=== PATIENT | female | born 1985 | race African-American/Black ===

== ENCOUNTER 2019-04-25 22:58 | Emergency (ER) | payer OTHER ==
[2019-04-25] MEDS ORDERED: Sodium Chloride 0.9% 10 ML Syringe FLUSH PRN (23:19)
[2019-04-25] MEDS ORDERED: Sodium Chloride 0.9% 2.5 ML Syringe FLUSH PRN (23:19)
[2019-04-25] MEDS ORDERED: Sodium Chloride 0.9% 1,000 ML IV ONE (23:19)
[2019-04-25] MEDS ORDERED: Ibuprofen 600 MG Tab PO ONE (23:25)
--- NOTE | 2019-04-25 23:28 | EDM.PDOC ---
ED HPI GENERAL MEDICAL PROBLEM - General Chief Complaint: General Stated Complaint: CHILLS,FLU SYMPTOMS Time Seen by Provider: 04/25/19 23:15 - History of Present Illness INITIAL COMMENTS - FREE TEXT/NARRATIVE: HISTORY AND PHYSICAL: History of present illness: The patient is a healthy 33-year-old female with a history of a hysterectomy and presents tonight with suprapubic pain that started on Tuesday associated with dysuria or urgency and pressure at the end of urination and fevers and chills that started this evening. She's had no cough or upper respiratory symptoms shortness of breath or upper abdominal pain and no vomiting or diarrhea. She has diffuse body aches and lower back pain but no discrete flank pain. She says that she started having fevers and chills this evening and took a dose of Tylenol which she believes were 2 extra strength tablets at 7 PM. She currently still feels chilly and is febrile here. She says she has been pushing hydration and as has generalized aches and pains. She has no sore throat earache sinus pain or congestion headache or shortness of breath. The patient says she has lower back pain which is bilateral and no midline back pain. Review of systems: As per history of present illness and below otherwise all systems reviewed and negative. Past medical history: As per history of present illness and as reviewed below otherwise noncontributory. Surgical history: As per history of present illness and as reviewed below otherwise noncontributory. Social history: No reported history of drug or alcohol abuse. Family history: As per history of present illness and as reviewed below otherwise noncontributory. Physical exam: General: Well-developed well-nourished female who is nontoxic and vital signs are noted by me. She moves easily in the ED without distress HEENT: Atraumatic, normocephalic, pupils reactive, negative for conjunctival pallor or scleral icterus, mucous membranes moist, throat clear, neck supple, nontender, trachea midline. Lungs: Clear to auscultation, breath sounds equal bilaterally, chest nontender. Heart: S1S2, regular rhythm and tachycardic rate of my evaluation but no overt murmurs Abdomen: Soft, nondistended, mild suprapubic tenderness without rebound or guarding and bowel sounds are slightly hypoactive Negative for masses or hepatosplenomegaly. Negative for costovertebral tenderness. Pelvis: Stable nontender. Genitourinary: Deferred. Rectal: Deferred. Extremities: Atraumatic, negative for cords or calf pain. Neurovascular unremarkable. Neuro: Awake, alert, oriented. Cranial nerves II through XII unremarkable. Cerebellum unremarkable. Motor and sensory unremarkable throughout. Exam nonfocal. Diagnostics: CBC CMP lactate UA urine culture blood cultures Therapeutics: IV fluids Motrin Rocephin, Tylenol She is aware of testing results and will go home with Levaquin to start in the morning. Advised her on reasons to return, need to push hydration and to take Tylenol and ibuprofen [id number]. In the clinic but cannot recall who it is. Impression: UTI with fever Definitive disposition and diagnosis as appropriate pending reevaluation and review of above. Treatments PATENT AGENT: Reports: Acetaminophen left slower side abdomen Pain Score (Numeric/FACES): 10 - Related Data Allergies Allergy/AdvReac Type Severity Reaction Status Date / Time No Known Allergies Allergy Verified 04/25/19 23:18 Home Meds: Home Meds . 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 ED EXAM, GENERAL - Physical Exam Exam: See Below (See dictation) Course - Vital Signs Last Recorded V/S: Last Vital Signs Temp 39.1 C H 04/26/19 00:35 Pulse 114 H 04/26/19 00:35 Resp 20 04/26/19 00:35 BP 114/68 04/26/19 00:35 Pulse Ox 95 04/26/19 00:35 - Orders/Labs/Meds Orders: Active Orders 24 hr Category Date Time Status CULTURE BLOOD [BC] Stat Lab 04/25/19 23:25 Received CULTURE BLOOD [BC] Stat Lab 04/25/19 23:53 Received CULTURE URINE [RM] Stat Lab 04/25/19 23:15 Received Sodium Chloride 0.9% [Saline Flush] Med 04/25/19 23:19 Active 10 ml FLUSH ASDIRECTED PRN Sodium Chloride 0.9% [Saline Flush] Med 04/25/19 23:19 Active 2.5 ml FLUSH ASDIRECTED PRN Blood Culture x2 Reflex Set [OM.PC] Stat Ot 04/25/19 23:25 Ordered Saline Lock Insert [OM.PC] Stat Ot 04/25/19 23:19 Ordered Medication Orders Sodium Chloride (Saline Flush) 10 ml FLUSH ASDIRECTED PRN PRN Reason: Keep Vein Open Sodium Chloride (Saline Flush) 2.5 ml FLUSH ASDIRECTED PRN PRN Reason: Keep Vein Open Labs: Laboratory Tests 04/25/19 04/25/19 04/25/19 Range/Units 23:15 23:30 23:30 WBC 5.81 (4.0-11.0) K/uL RBC 4.91 (4.30-5.90) M/uL Hgb 11.3 L (12.0-16.0) g/dL Hct 35.8 L (36.0-46.0) % MCV 72.9 L (80.0-98.0) fL MCH 23.0 L (27.0-32.0) pg MCHC 31.6 (31.0-37.0) g/dL RDW Std Deviation 37.7 (28.0-62.0) fl RDW Coeff of [place] 14 (11.0-15.0) % Plt Count 198 (150-400) K/uL MPV 11.40 (7.40-12.00) fL Neut % (Auto) 74.8 (48.0-80.0) % Lymph % (Auto) 21.2 (16.0-40.0) % [place] % (Auto) 1.7 (0.0-15.0) % Eos % (Auto) 2.1 (0.0-7.0) % Baso % (Auto) 0.2 (0.0-1.5) % Neut # (Auto) 4.4 (1.4-5.7) K/uL Lymph # (Auto) 1.2 (0.6-2.4) K/uL [place] # (Auto) 0.1 (0.0-0.8) K/uL Eos # (Auto) 0.1 (0.0-0.7) K/uL Baso # (Auto) 0.0 (0.0-0.1) K/uL Nucleated RBC % 0.0 /100WBC Nucleated RBCs # 0 K/uL Lactate (0.20-2.00) mmol/L Sodium 140 (136-145) mmol/L Potassium 4.3 (3.5-5.1) mmol/L Chloride 105 (98-107) mmol/L Carbon Dioxide 25.0 (21.0-32.0) mmol/L BUN 14 (7.0-18.0) mg/dL Creatinine 0.8 (0.6-1.0) mg/dL Est Cr Clr Drug Dosing 85.56 mL/min Estimated GFR (MDRD) > 60.0 ml/min Glucose 98 (74-106) mg/dL Calcium 8.9 (8.5-10.1) mg/dL Total Bilirubin 0.3 (0.2-1.0) mg/dL AST 27 (15-37) IU/L ALT 40 (14-63) IU/L Alkaline Phosphatase 73 (46-116) U/L Total Protein 7.8 (6.4-8.2) g/dL Albumin 3.8 (3.4-5.0) g/dL Globulin 4.0 (2.6-4.0) g/dL Albumin/Globulin Ratio 0.9 (0.9-1.6) Urine Color YELLOW Urine Appearance CLOUDY Urine pH 6.5 (5.0-8.0) Ur Specific [place] 1.010 (1.001-1.035) Urine Protein TRACE H (NEGATIVE) mg/dL Urine Glucose (UA) NEGATIVE (NEGATIVE) mg/dL Urine Ketones NEGATIVE (NEGATIVE) mg/dL Urine Occult Blood LARGE H (NEGATIVE) Urine Nitrite NEGATIVE (NEGATIVE) Urine Bilirubin NEGATIVE (NEGATIVE) Urine Urobilinogen 0.2 (<2.0) EU/dL Ur Leukocyte Esterase LARGE H (NEGATIVE) Urine RBC 9-12 (0-2/HPF) Urine WBC 50-75 (0-5/HPF) Ur Epithelial Cells FEW (NONE-FEW) Urine Bacteria 1+ H (NEGATIVE) Urine Mucus LIGHT (NONE-MOD) 04/25/19 Range/Units 23:30 WBC (4.0-11.0) K/uL RBC (4.30-5.90) M/uL Hgb (12.0-16.0) g/dL Hct (36.0-46.0) % MCV (80.0-98.0) fL MCH (27.0-32.0) pg MCHC (31.0-37.0) g/dL RDW Std Deviation (28.0-62.0) fl RDW Coeff of [place] (11.0-15.0) % Plt Count (150-400) K/uL MPV (7.40-12.00) fL Neut % (Auto) (48.0-80.0) % Lymph % (Auto) (16.0-40.0) % [place] % (Auto) (0.0-15.0) % Eos % (Auto) (0.0-7.0) % Baso % (Auto) (0.0-1.5) % Neut # (Auto) (1.4-5.7) K/uL Lymph # (Auto) (0.6-2.4) K/uL [place] # (Auto) (0.0-0.8) K/uL Eos # (Auto) (0.0-0.7) K/uL Baso # (Auto) (0.0-0.1) K/uL Nucleated RBC % /100WBC Nucleated RBCs # K/uL Lactate 1.8 (0.20-2.00) mmol/L Sodium (136-145) mmol/L Potassium (3.5-5.1) mmol/L Chloride (98-107) mmol/L Carbon Dioxide (21.0-32.0) mmol/L BUN (7.0-18.0) mg/dL Creatinine (0.6-1.0) mg/dL Est Cr Clr Drug Dosing mL/min Estimated GFR (MDRD) ml/min Glucose (74-106) mg/dL Calcium (8.5-10.1) mg/dL Total Bilirubin (0.2-1.0) mg/dL AST (15-37) IU/L ALT (14-63) IU/L Alkaline Phosphatase (46-116) U/L Total Protein (6.4-8.2) g/dL Albumin (3.4-5.0) g/dL Globulin (2.6-4.0) g/dL Albumin/Globulin Ratio (0.9-1.6) Urine Color Urine Appearance Urine pH (5.0-8.0) Ur Specific [place] (1.001-1.035) Urine Protein (NEGATIVE) mg/dL Urine Glucose (UA) (NEGATIVE) mg/dL Urine Ketones (NEGATIVE) mg/dL Urine Occult Blood (NEGATIVE) Urine Nitrite (NEGATIVE) Urine Bilirubin (NEGATIVE) Urine Urobilinogen (<2.0) EU/dL Ur Leukocyte Esterase (NEGATIVE) Urine RBC (0-2/HPF) Urine WBC (0-5/HPF) Ur Epithelial Cells (NONE-FEW) Urine Bacteria (NEGATIVE) Urine Mucus (NONE-MOD) Meds: Medications Generic Name Dose Route Start Last Admin Trade Name Freq PRN Reason Stop Dose Admin Sodium Chloride 10 ml 04/25/19 23:19 Saline Flush FLUSH ASDIRECTED PRN Keep Vein Open Sodium Chloride 2.5 ml 04/25/19 23:19 Saline Flush FLUSH ASDIRECTED PRN Keep Vein Open Discontinued Medications Generic Name Dose Route Start Last Admin Trade Name Freq PRN Reason Stop Dose Admin Acetaminophen 1,000 mg 04/26/19 00:36 Tylenol Extra Strength PO 04/26/19 00:37 ONETIME ONE Sodium Chloride 1,000 mls @ 999 mls/hr 04/25/19 23:19 04/25/19 23:34 Normal Saline IV 04/26/19 00:19 999 mls/hr STAT ONE Administration Ceftriaxone Sodium/Dextrose 1 50 mls @ 100 mls/hr 04/25/19 23:56 04/26/19 00: 20 gm/ Premix IV 04/26/19 00:25 100 mls/hr ONETIME ONE Administration Ibuprofen 600 mg 04/25/19 23:25 04/25/19 23:36 Motrin PO 04/25/19 23:26 600 mg ONETIME ONE Administration Departure - Departure Time of Disposition: 00:39 Disposition: Home, Self-Care 01 Condition: Good Clinical Impression: UTI, Urinary tract infectious disease Fever Qualifiers: Fever type: unspecified Qualified Code(s): R50.9 - Fever, unspecified - Discharge Information Referrals: Sarah Mcdowell PA [Primary Care Provider] - Forms: ED Department Discharge Additional Instructions: The following information is given to patients seen in the emergency department who are being discharged to home. This information is to outline your options for follow-up care. We provide all patients seen in our emergency department with a follow-up referral. The need for follow-up, as well as the timing and circumstances, are variable depending upon the specifics of your emergency department visit. If you don't have a primary care physician on staff, we will provide you with a referral. We always advise you to contact your personal physician following an emergency department visit to inform them of the circumstance of the visit and for follow-up with them and/or the need for any referrals to a consulting specialist. The emergency department will also refer you to a specialist when appropriate. This referral assures that you have the opportunity for followup care with a specialist. All of these measure are taken in an effort to provide you with optimal care, which includes your followup. Under all circumstances we always encourage you to contact your private physician who remains a resource for coordinating your care. When calling for followup care, please make the office aware that this follow-up is from your recent emergency room visit. If for any reason you are refused follow-up, please contact the [facility] emergency department at and ask to speak to the emergency department charge nurse. [facility] Primary care- Internal Medicine and Family [address] [address] Push fluids such as water Gatorade and juices and avoid caffeinated products. Please fill the prescription yet been given for antibiotics and take as directed starting later this morning. I'll schedule a follow-up appointment in our clinic for further care and evaluation and return to ER as needed and as discussed. Please take Tylenol 2 extra strength, 1000 mg, every 6 hours and Motrin/ibuprofen, 600 mg every 6 hours for fever management. - My Orders Last 24 Hours: My Active Orders 04/25/19 23:15 CULTURE URINE [RM] Stat 04/25/19 23:19 Sodium Chloride 0.9% [Saline Flush] 10 ml FLUSH ASDIRECTED PRN Sodium Chloride 0.9% [Saline Flush] 2.5 ml FLUSH ASDIRECTED PRN Saline Lock Insert [OM.PC] Stat 04/25/19 23:25 CULTURE BLOOD [BC] Stat Blood Culture x2 Reflex Set [OM.PC] Stat 04/25/19 23:53 CULTURE BLOOD [BC] Stat - Assessment/Plan Last 24 Hours: My Active Orders 04/25/19 23:15 CULTURE URINE [RM] Stat 04/25/19 23:19 Sodium Chloride 0.9% [Saline Flush] 10 ml FLUSH ASDIRECTED PRN Sodium Chloride 0.9% [Saline Flush] 2.5 ml FLUSH ASDIRECTED PRN Saline Lock Insert [OM.PC] Stat 04/25/19 23:25 CULTURE BLOOD [BC] Stat Blood Culture x2 Reflex Set [OM.PC] Stat 04/25/19 23:53 CULTURE BLOOD [BC] Stat
[2019-04-25] MEDS ORDERED: cefTRIAXone 1 GM in Premix Bag 1 BAG IV ONE (23:56)
[2019-04-26 00:02] LABS: BLOOD UREA NITROGEN,BUN 14 mg/dL (7.0-18.0); CHLORIDE,CL 105 mmol/L (98-107); GLUCOSE RANDOM 98 mg/dL (74-106); POTASSIUM,K 4.3 mmol/L (3.5-5.1); SODIUM,NA 140 mmol/L (136-145)
[2019-04-26 00:36] VITALS: BP 114/68; PULSE 114
[2019-04-26] MEDS ORDERED: Acetaminophen 500 MG Tab PO ONE (00:36)
== END 2019-04-26 00:55 | disposition home or self-care (01) ==
LOC: MW.ED 22:58
DX: N39.0 Urinary tract infection, site not specified (principal); Z90.710 Acquired absence of both cervix and uterus
CPT/HCPCS: 36415; 80053; 81001; 83605; 85025; 87040; 87086; 87088; 87186; 96361; 96365; 99283; A9270; J0696; J7040; 87077

== ENCOUNTER 2019-04-26 12:39 | Inpatient (IN) | payer OTHER ==
[2019-04-26] MEDS ORDERED: Ondansetron 4 MG/2 ML SDV IVPUSH PRN (12:45)
[2019-04-26] MEDS ORDERED: oxyCODONE 5 MG Tab PO PRN (12:45)
[2019-04-26] MEDS ORDERED: Ibuprofen 400 MG Tab PO PRN (12:45)
[2019-04-26] MEDS ORDERED: Sodium Chloride 0.9% 2.5 ML Syringe FLUSH PRN (12:45)
[2019-04-26] MEDS ORDERED: Acetaminophen 325 MG Tab PO PRN (12:45)
[2019-04-26] MEDS: Sodium Chloride 0.9% 1,000 ML IV SCH ×2 (13:54→22:15)
--- NOTE | 2019-04-26 14:14 | PCM.HP ---
H&P History of Present Illness - General Date of Service: 04/26/19 Admit Problem/Dx: Admission Diagnosis/Problem Admission Diagnosis/Problem Bacteremia Source of Information: Patient History Limitations: Reports: No Limitations - History of Present Illness Initial Comments - Free Text/Narative: This 33 year old female with pmh of hysterectomy presented to the hospital today for direct admission. Last evening she got off work and felt very ill. She was having chills and fevers at home with lower abdominal pain along with dysuria. She reports she had some urgency and frequency in urination. Symptoms initially started on Tuesday and Tuesday but then became more severe last night prompting evaluation in the ED. In the ED she was noted to have UTI and to be febrile. She was treated with IVFs and Rocephin. UC and BC were obtained. 2/4 blood cultures returned this morning positive for gram negative rods. She was called back for admission. She reports today she is feeling much improved from last night. No further fever at home. She is eating and drinking well, with no nausea or vomiting. She reports mild L flank tenderness, last night it was bilateral. She denies diarrhea. No chest pain or SOB. No sinus congestion or sore throat. She denies any neck pain or headache. She has not traveled recently and has not been on antibiotics recently. In the ED, no leukocytosis noted, Lactate 1.8. BUN 14, and Cr 0.8 UA revealed + 1 bacteria, large amount of blood, large leukocyte esterase and WBC 50-75. She will be directly admitted for gram negative bacteremia and UTI. - Related Data Allergies/Adverse Reactions: Allergies Allergy/AdvReac Type Severity Reaction Status Date / Time No Known Allergies Allergy Verified 04/25/19 23:18 Home Medications: Home Meds . [No Known Home Meds] 04/25/19 [History] Past Medical History - Past Health History Medical/Surgical History: Denies Medical/Surgical History Cardiovascular History: Reports: None. Denies: Afib, High Cholesterol, Hypertension Respiratory History: Reports: None. Denies: Asthma, COPD Gastrointestinal History: Reports: None. 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 Denies: Headaches, Sinus Congestion, Sore Throat, Vertigo Pulmonary: Reports: No Symptoms. Denies: Shortness of Breath Cardiovascular: Reports: No Symptoms. Denies: Chest Pain Gastrointestinal: Reports: No Symptoms. Denies: Abdominal Pain, Black Stool, Bloody Stool, Nausea, Vomiting Genitourinary: Reports: Dysuria, Frequency, Burning, Pain (lower abdominal pain) , Hematuria, Flank Pain Musculoskeletal: Reports: No Symptoms. Denies: Neck Pain Skin: Reports: No Symptoms Psychiatric: Reports: No Symptoms Neurological: Reports: No Symptoms Hematologic/Lymphatic: Reports: No Symptoms Immunologic: Reports: No Symptoms Exam - Exam Exam: See Below - Vital Signs Vital Signs: Last Vital Signs Temp 96.9 F 04/26/19 13:58 Pulse 105 H 04/26/19 13:58 Resp 17 04/26/19 13:58 BP 115/79 04/26/19 13:58 Pulse Ox 98 04/26/19 13:58 - Exam General: Alert, Oriented, Cooperative HEENT: Conjunctiva Clear, Mucosa Moist & [place], Pupils Equal Neck: Supple Lungs: Clear to Auscultation, Normal Respiratory Effort Cardiovascular: Regular Rate, Regular Rhythm GI/Abdominal Exam: Normal Bowel Sounds, Soft, Non-Tender Back Exam: Normal Inspection, Full Range of Motion, CVA Tenderness (L) Extremities: Normal Inspection, Normal Range of Motion, Non-Tender, No Pedal Edema Neuro Extensive - Mental Status: Alert, Oriented x3 Neuro Extensive - Motor, Sensory, Reflexes: CN II-XII Intact, Normal Gait Psychiatric: Alert, Normal Affect, Normal Mood - Patient Data Lab Results Last 24 hrs: Laboratory Results - last 24 hr 04/26/19 Range/Units 13:45 Lactate 1.3 (0.20-2.00) mmol/L Result Diagrams: 04/26/19 13:45 04/26/19 13:45 *Q Meaningful Use (ADM) - VTE Risk Assess *Q Each Risk Factor Represents 1 Point: None Total Score 1 Point Risk Factors: 0 Each Risk Factor Represents 2 Points: None Total Score 2 Point Risk Factors: 0 Each Risk Factor Represents 3 Points: None Total Score 3 Point Risk Factors: 0 Each Risk Factor Represents 5 Points: None Total Score 5 Point Risk Factors: 0 Venous Thromboembolism Risk Factor Score *Q: 0 - Problem List (1) Gram-negative bacteremia SNOMED Code(s): 362747762594 ICD Code: R78.81 - BACTEREMIA Status: Acute Current Visit: Yes (2) UTI, Urinary tract infectious disease SNOMED Code(s): 43747774 ICD Code: N39.0 - URINARY TRACT INFECTION, SITE NOT SPECIFIED Status: Acute Current Visit: No Problem List Initiated/Reviewed/Updated: Yes Orders Last 24hrs: Active Orders 24 hr Category Date Time Status Patient Status [ADT] Routine ADT 04/26/19 12:45 Active Antiembolic Devices [RC] PER UNIT ROUTINE Care 04/26/19 12:47 Active Intake and Output [RC] QSHIFT Care 04/26/19 12:46 Active May Shower [RC] ASDIRECTED Care 04/26/19 12:45 Active Oxygen Therapy [RC] PRN Care 04/26/19 12:45 Active Up ad Hanh [RC] ASDIRECTED Care 04/26/19 12:45 Active VTE/DVT Education [RC] PER UNIT ROUTINE Care 04/26/19 12:45 Active Vital Signs [RC] Q4H Care 04/26/19 12:45 Active Regular Diet [DIET] Diet 04/26/19 Lunch Active Abdomen Pelvis wo Cont [CT] Urgent Exams 04/26/19 14:08 Ordered CBC WITH AUTO DIFF [HEME] Urgent Lab 04/26/19 12:45 Ordered COMPREHENSIVE METABOLIC PN,CMP [CHEM] Urgent Lab 04/26/19 12:45 Ordered CULTURE BLOOD [BC] Stat Lab 04/26/19 12:48 Ordered CULTURE BLOOD [BC] Stat Lab 04/26/19 12:48 Ordered Acetaminophen [Tylenol] Med 04/26/19 12:45 Active 650 mg PO Q4H PRN Ibuprofen [Motrin] Med 04/26/19 12:45 Active 400 mg PO Q6H PRN Ondansetron [Zofran] Med 04/26/19 12:45 Active 4 mg IVPUSH Q4H PRN Sodium Chloride 0.9% [Normal Saline] 1,000 ml Med 04/26/19 12:45 Active IV ASDIRECTED Sodium Chloride 0.9% [Saline Flush] Med 04/26/19 12:45 Active 2.5 ml FLUSH ASDIRECTED PRN cefTRIAXone [Rocephin in Dextrose,Iso-Osm 2 GM/50 ML] 2 Med 04/26/19 14:15 Ordered gm Premix Bag 1 bag IV Q24H oxyCODONE Med 04/26/19 12:45 Active 5 mg PO Q4H PRN Blood Culture x2 Reflex Set [OM.PC] Stat Oth 04/26/19 12:45 Ordered Saline Lock Insert [OM.PC] Routine Oth 04/26/19 12:45 Ordered Sequential Compression Device [OM.PC] Per Unit Routine Oth 04/26/19 12:46 Ordered Resuscitation Status Routine Resus Stat 04/26/19 12:45 Ordered Medication Orders Acetaminophen (Tylenol) 650 mg PO Q4H PRN PRN Reason: Pain (mild 1-3) Sodium Chloride (Normal Saline) 1,000 mls @ 125 mls/hr IV ASDIRECTED MARY JO Last Admin: 04/26/19 13:54 Dose: 125 mls/hr Ibuprofen (Motrin) 400 mg PO Q6H PRN PRN Reason: Pain (mild 1-3) Ondansetron HCl (Zofran) 4 mg IVPUSH Q4H PRN PRN Reason: Nausea Oxycodone HCl (Oxycodone) 5 mg PO Q4H PRN PRN Reason: Pain (moderate 4-6) Sodium Chloride (Saline Flush) 2.5 ml FLUSH ASDIRECTED PRN PRN Reason: Keep Vein Open Assessment/Plan Comment:: This 33 year old female admitted with gram negative fatou bacteremia and UTI 1. Gram negative fatou bacteremia: Start Zosyn 3.375 mg IV every 6 hours. Repeat BC today and await POLA of first set. UC pending. Lactic acid 1.3 today 2. UTI: Zosyn as above. Await UC. CT of abd/pelvis reveals no hydronephrosis or renal stones. Did note R ovarian cyst, which patient was made aware of. Slightly tachycardic, but overall appears non-toxic. Will continue IVFs NS 125 overnight. Monitor labwork in am. VTE prophylaxis: SCDs and ambulation Dispo: 2-3 days pending clearance of BC.
[2019-04-26] MEDS ORDERED: cefTRIAXone 2 GM in Premix Bag 1 BAG IV SCH (14:15)
[2019-04-26 15:17] LABS: BLOOD UREA NITROGEN,BUN 11 mg/dL (7.0-18.0); CARBON DIOXIDE,CO2 22.1 mmol/L (21.0-32.0); CHLORIDE,CL 107 mmol/L (98-107); GLUCOSE RANDOM 89 mg/dL (74-106); POTASSIUM,K 4.2 mmol/L (3.5-5.1); SODIUM,NA 141 mmol/L (136-145)
--- NOTE | 2019-04-26 15:20 | CT ---
INDICATION: UTI, bacteremia, flank pain. COMPARISON: None available TECHNIQUE: CT examination of the abdomen and pelvis was performed without contrast enhancement using 3 mm thick axial sections from the lung bases through the pubic symphysis. Oral contrast was not administered. Please note that all CT scans at this facility use dose modulation, iterative reconstruction, and/or weight-based dosing when appropriate to reduce radiation dose to as low as reasonably achievable. FINDINGS: In the abdomen, the unenhanced liver, spleen, pancreas, and adrenals are normal in appearance. The unenhanced kidneys are normal in appearance. The gallbladder is normal in appearance. The abdominal aorta is normal in caliber with no sign of dilatation. There is no sign of retroperitoneal mass or adenopathy. The stomach, loops of small bowel, and colon in the abdomen are normal in appearance. In the pelvis, the appendix is normal in appearance with no sign of inflammatory process. The loops of small bowel and colon in the pelvis are normal in appearance. The there is a large right ovarian cyst measuring 6.1 x 5.2 centimeters. The uterus is absent consistent with hysterectomy. The left adnexal region is normal in appearance. The urinary bladder is normal in appearance. There is no sign of pelvic or inguinal mass or adenopathy. The lung bases are clear. The osseous structures are normal in appearance for the patient`s age. IMPRESSION: Nothing seen to explain the patient`s symptoms flank pain. No sign of any abnormality in the urinary systems, with no sign of hydronephrosis, hydroureter, or calculi. Normal appearance of the appendix. Normal CT of the abdomen without contrast. CT of the pelvis shows a large right ovarian cyst measuring up to 6.1 centimeters in diameter. Status post hysterectomy. Please note that all CT scans at this facility use dose modulation, iterative reconstruction, and/or weight-based dosing when appropriate to reduce radiation dose to as low as reasonably achievable. Dictated by Tomi Mcdonnell MD @ Apr 26 2019 3:14PM Signed by Dr. Tomi Mcdonnell @ Apr 26 2019 3:19PM
[2019-04-26] MEDS ORDERED: Piperacillin/Tazobactam 3.375 GM in Sodium Chloride 0.9% 100 ML IV SCH (17:20)
[2019-04-26] MEDS: Piperacillin/Tazobactam 3.375 GM in Sodium Chloride 0.9% 100 ML IV SCH (18:16)
[2019-04-27 05:47] LABS: BLOOD UREA NITROGEN,BUN 8 mg/dL (7.0-18.0); CARBON DIOXIDE,CO2 24.1 mmol/L (21.0-32.0); CHLORIDE,CL 108 mmol/L (98-107); GLUCOSE RANDOM 115 mg/dL (74-106); POTASSIUM,K 4.4 mmol/L (3.5-5.1); SODIUM,NA 140 mmol/L (136-145)
[2019-04-27] MEDS: Piperacillin/Tazobactam 3.375 GM in Sodium Chloride 0.9% 100 ML IV SCH ×6 (06:36→23:53)
[2019-04-27] MEDS: Sodium Chloride 0.9% 1,000 ML IV SCH (06:36)
--- NOTE | 2019-04-27 07:58 | PCM.PN ---
- General Info Date of Service: 04/27/19 Admission Dx/Problem (Free Text): Admission Diagnosis/Problem Admission Diagnosis/Problem Bacteremia Subjective Update: Doing well today, no concerns. No chest pain or SOB. No fevers or chills. No flank pain. Functional Status: Reports: Pain Controlled, Tolerating Diet, Ambulating, Urinating - Review of Systems General: Reports: No Symptoms. Denies: Weakness, Fatigue HEENT: Reports: No Symptoms. Denies: Headaches, Sore Throat, Visual Changes Pulmonary: Reports: No Symptoms. Denies: Shortness of Breath Cardiovascular: Reports: No Symptoms. Denies: Chest Pain Gastrointestinal: Reports: No Symptoms. Denies: Abdominal Pain, Nausea, Vomiting Genitourinary: Reports: Dysuria (improving). Denies: Frequency, Urgency, Flank Pain Musculoskeletal: Reports: No Symptoms Skin: Reports: No Symptoms Neurological: Reports: No Symptoms Psychiatric: Reports: No Symptoms - Patient Data Vitals - Most Recent: Last Vital Signs Temp 97.5 F 04/27/19 07:36 Pulse 90 04/27/19 07:36 Resp 20 04/27/19 07:36 BP 120/77 04/27/19 07:36 Pulse Ox 100 04/27/19 07:36 Weight - Most Recent: 63.503 kg I&O - Last 24 Hours: Intake & Output 04/26/19 04/27/19 04/27/19 22:59 06:59 14:59 Intake Total 300 2431 Output Total 1975 Balance 300 456 Lab Results Last 24 Hours: Laboratory Results - last 24 hr 04/26/19 04/26/19 04/26/19 Range/Units 13:45 13:45 13:45 WBC 9.34 (4.0-11.0) K/uL RBC 5.06 (4.30-5.90) M/uL Hgb 11.7 L (12.0-16.0) g/dL Hct 36.9 (36.0-46.0) % MCV 72.9 L (80.0-98.0) fL MCH 23.1 L (27.0-32.0) pg MCHC 31.7 (31.0-37.0) g/dL RDW Std Deviation 38.1 (28.0-62.0) fl RDW Coeff of [place] 15 (11.0-15.0) % Plt Count 192 (150-400) K/uL MPV 11.50 (7.40-12.00) fL Neut % (Auto) 66.0 (48.0-80.0) % Lymph % (Auto) 20.7 (16.0-40.0) % Anderson % (Auto) 11.1 (0.0-15.0) % Eos % (Auto) 2.0 (0.0-7.0) % Baso % (Auto) 0.2 (0.0-1.5) % Neut # (Auto) 6.2 H (1.4-5.7) K/uL Lymph # (Auto) 1.9 (0.6-2.4) K/uL Anderson # (Auto) 1.0 H (0.0-0.8) K/uL Eos # (Auto) 0.2 (0.0-0.7) K/uL Baso # (Auto) 0.0 (0.0-0.1) K/uL Nucleated RBC % 0.0 /100WBC Nucleated RBCs # 0 K/uL Lactate 1.3 (0.20-2.00) mmol/L Sodium 141 (136-145) mmol/L Potassium 4.2 (3.5-5.1) mmol/L Chloride 107 (98-107) mmol/L Carbon Dioxide 22.1 (21.0-32.0) mmol/L BUN 11 (7.0-18.0) mg/dL Creatinine 0.7 (0.6-1.0) mg/dL Est Cr Clr Drug Dosing TNP Estimated GFR (MDRD) > 60.0 ml/min Glucose 89 (74-106) mg/dL Calcium 8.8 (8.5-10.1) mg/dL Total Bilirubin 0.3 (0.2-1.0) mg/dL AST 22 (15-37) IU/L ALT 36 (14-63) IU/L Alkaline Phosphatase 72 (46-116) U/L Total Protein 7.1 (6.4-8.2) g/dL Albumin 3.4 (3.4-5.0) g/dL Globulin 3.7 (2.6-4.0) g/dL Albumin/Globulin Ratio 0.9 (0.9-1.6) 04/27/19 04/27/19 Range/Units 04:30 04:30 WBC 7.51 (4.0-11.0) K/uL RBC 4.68 (4.30-5.90) M/uL Hgb 10.9 L (12.0-16.0) g/dL Hct 34.1 L (36.0-46.0) % MCV 72.9 L (80.0-98.0) fL MCH 23.3 L (27.0-32.0) pg MCHC 32.0 (31.0-37.0) g/dL RDW Std Deviation 38.4 (28.0-62.0) fl RDW Coeff of [place] 15 (11.0-15.0) % Plt Count 174 (150-400) K/uL MPV 11.30 (7.40-12.00) fL Neut % (Auto) 53.6 (48.0-80.0) % Lymph % (Auto) 33.0 (16.0-40.0) % Anderson % (Auto) 9.9 (0.0-15.0) % Eos % (Auto) 3.2 (0.0-7.0) % Baso % (Auto) 0.3 (0.0-1.5) % Neut # (Auto) 4.0 (1.4-5.7) K/uL Lymph # (Auto) 2.5 H (0.6-2.4) K/uL Anderson # (Auto) 0.7 (0.0-0.8) K/uL Eos # (Auto) 0.2 (0.0-0.7) K/uL Baso # (Auto) 0.0 (0.0-0.1) K/uL Nucleated RBC % 0.0 /100WBC Nucleated RBCs # 0 K/uL Lactate (0.20-2.00) mmol/L Sodium 140 (136-145) mmol/L Potassium 4.4 (3.5-5.1) mmol/L Chloride 108 H (98-107) mmol/L Carbon Dioxide 24.1 (21.0-32.0) mmol/L BUN 8 (7.0-18.0) mg/dL Creatinine 0.7 (0.6-1.0) mg/dL Est Cr Clr Drug Dosing 97.79 Estimated GFR (MDRD) > 60.0 ml/min Glucose 115 H (74-106) mg/dL Calcium 8.3 L (8.5-10.1) mg/dL Total Bilirubin (0.2-1.0) mg/dL AST (15-37) IU/L ALT (14-63) IU/L Alkaline Phosphatase (46-116) U/L Total Protein (6.4-8.2) g/dL Albumin (3.4-5.0) g/dL Globulin (2.6-4.0) g/dL Albumin/Globulin Ratio (0.9-1.6) Alexander Results Last 24 Hours: Microbiology 04/26/19 13:35 Anaerobic Blood Culture - Final Blood - Venous - Lab Draw Med Orders - Current: Current Medications Acetaminophen (Tylenol) 650 mg PO Q4H PRN PRN Reason: Pain (mild 1-3) Piperacillin Sod/Tazobactam (Sod 3.375 gm/ Sodium Chloride) 100 mls @ 200 mls/ hr IV Q6H [facility] Last Admin: 04/27/19 06:36 Dose: 200 mls/hr Ibuprofen (Motrin) 400 mg PO Q6H PRN PRN Reason: Pain (mild 1-3) Ondansetron HCl (Zofran) 4 mg IVPUSH Q4H PRN PRN Reason: Nausea Oxycodone HCl (Oxycodone) 5 mg PO Q4H PRN PRN Reason: Pain (moderate 4-6) Last Admin: 04/26/19 18:15 Dose: 5 mg Sodium Chloride (Saline Flush) 2.5 ml FLUSH ASDIRECTED PRN PRN Reason: Keep Vein Open Discontinued Medications Sodium Chloride (Normal Saline) 1,000 mls @ 125 mls/hr IV ASDIRECTED [facility] Last Admin: 04/27/19 06:36 Dose: 125 mls/hr Ceftriaxone Sodium/Dextrose 2 (gm/ Premix) 50 mls @ 100 mls/hr IV Q24H [facility] Last Admin: 04/26/19 14:49 Dose: Not Given Piperacillin Sod/Tazobactam (Sod 3.375 gm/ Sodium Chloride) 100 mls @ 200 mls/ hr IV Q6H [facility] Last Admin: 04/26/19 19:54 Dose: Not Given - Exam General: Alert, Oriented, Cooperative, No Acute Distress Neck: Supple Lungs: Clear to Auscultation, Normal Respiratory Effort Cardiovascular: Regular Rate, Regular Rhythm GI/Abdominal Exam: Normal Bowel Sounds, Soft, Non-Tender, No Distention Extremities: Normal Inspection, Normal Range of Motion, Non-Tender, No Pedal Edema Neurological: No New Focal Deficit Psy/Mental Status: Alert, Normal Affect, Normal Mood - Problem List & Annotations (1) Gram-negative bacteremia SNOMED Code(s): 633590580320 Code(s): R78.81 - BACTEREMIA Status: Acute Current Visit: Yes (2) UTI, Urinary tract infectious disease SNOMED Code(s): 63310027 Code(s): N39.0 - URINARY TRACT INFECTION, SITE NOT SPECIFIED Status: Acute Current Visit: No - Problem List Review Problem List Initiated/Reviewed/Updated: Yes - My Orders Last 24 Hours: My Active Orders 04/26/19 12:45 Patient Status [ADT] Routine May Shower [RC] ASDIRECTED Oxygen Therapy [RC] PRN Up ad Hanh [RC] ASDIRECTED VTE/DVT Education [RC] PER UNIT ROUTINE Vital Signs [RC] Q4H Acetaminophen [Tylenol] 650 mg PO Q4H PRN Ibuprofen [Motrin] 400 mg PO Q6H PRN Ondansetron [Zofran] 4 mg IVPUSH Q4H PRN Sodium Chloride 0.9% [Saline Flush] 2.5 ml FLUSH ASDIRECTED PRN oxyCODONE 5 mg PO Q4H PRN Blood Culture x2 Reflex Set [OM.PC] Stat Saline Lock Insert [OM.PC] Routine Resuscitation Status Routine 04/26/19 12:46 Intake and Output [RC] Q12H Sequential Compression Device [OM.PC] Per Unit Routine 04/26/19 12:47 Antiembolic Devices [RC] PER UNIT ROUTINE 04/26/19 13:35 CULTURE BLOOD [BC] Stat 04/26/19 13:45 CULTURE BLOOD [BC] Stat 04/26/19 18:02 Piperacillin/Tazobactam [Piperacil-Tazobact] 3.375 gm Sodium Chloride 0.9% [ Normal Saline] 100 ml IV Q6H 04/26/19 Lunch Regular Diet [DIET] 04/28/19 05:11 BMP [BASIC METABOLIC PANEL,BMP] [CHEM] AM CBC WITH AUTO DIFF [HEME] AM 04/29/19 05:11 BMP [BASIC METABOLIC PANEL,BMP] [CHEM] AM CBC WITH AUTO DIFF [HEME] AM - Plan Plan:: This 33 year old female admitted with gram negative fatou bacteremia and UTI 1. Gram negative fatou bacteremia: Continue Zosyn 3.375 mg IV every 6 hours. BC pending and from first set, 2/4 positive with gram - rods, await ALEXANDER. UC pending. 2. UTI: Zosyn as above. Await UC. Labwork stable. Discontinue IVFs, no longer tachycardic. Eating and drinking well. VTE prophylaxis: SCDs and ambulation Dispo: 2-3 days pending clearance of BC.
[2019-04-28] MEDS: Piperacillin/Tazobactam 3.375 GM in Sodium Chloride 0.9% 100 ML IV SCH ×2 (05:43→12:03)
[2019-04-28 06:33] LABS: BLOOD UREA NITROGEN,BUN 8 mg/dL (7.0-18.0); CARBON DIOXIDE,CO2 25.1 mmol/L (21.0-32.0); CHLORIDE,CL 107 mmol/L (98-107); GLUCOSE RANDOM 102 mg/dL (74-106); POTASSIUM,K 4.4 mmol/L (3.5-5.1); SODIUM,NA 141 mmol/L (136-145)
--- NOTE | 2019-04-28 11:48 | PCM.DCSUM1 ---
Discharge Summary - Discharge Data Discharge Date: 04/28/19 Discharge Disposition: Home, Self-Care 01 Condition: Good - Patient Summary/Data Hospital Course: This 33 year old female who was admitted for E.coli pyelonephritis with bacteremia. She presented to the ER with fevers, chills and lower abdominal pain. She was given rocephen and discharged home on oral antibiotics. She was called back for direct admission when her blood cultures reported gram negative rods. On admission she was largely asymptomatic. CT of the abdomen and pelvis showed no urinary obstruction. She was treated with IV Zosyn until blood cultures finalized to E.coli which was fuentes sensitive. Her urine cultures grew out same organism. She was discharged home on oral Levaquin. - Discharge Plan Prescriptions/Med Rec: Levofloxacin [Levaquin] 750 mg PO DAILY #10 tablet Home Medications: Home Meds Levofloxacin [Levaquin] 750 mg PO DAILY #10 tablet 04/28/19 [Rx] Patient Handouts: Levofloxacin tablets, Bacteremia Referrals: Placido Chu MD [Resident] - 05/11/19 1:30 pm - Discharge Summary/Plan Comment DC Time >30 min.: No - Patient Data Vitals - Most Recent: Last Vital Signs Temp 36.5 C 04/28/19 07:48 Pulse 81 04/28/19 07:48 Resp 16 04/28/19 07:48 BP 118/72 04/28/19 07:48 Pulse Ox 99 04/28/19 07:48 Weight - Most Recent: 63.503 kg I&O - Last 24 hours: Intake & Output 04/27/19 04/28/19 04/28/19 22:59 06:59 14:59 Intake Total 825 850 Output Total 1500 800 Balance -675 50 Lab Results - Last 24 hrs: Laboratory Results - last 24 hr 04/28/19 04/28/19 Range/Units 05:53 05:53 WBC 5.19 (4.0-11.0) K/uL RBC 4.87 (4.30-5.90) M/uL Hgb 11.3 L (12.0-16.0) g/dL Hct 34.3 L (36.0-46.0) % MCV 70.4 L (80.0-98.0) fL MCH 23.2 L (27.0-32.0) pg MCHC 32.9 (31.0-37.0) g/dL RDW Std Deviation 36.3 (28.0-62.0) fl RDW Coeff of [place] 15 (11.0-15.0) % Plt Count 234 (150-400) K/uL MPV 11.30 (7.40-12.00) fL Neut % (Auto) 48.5 (48.0-80.0) % Lymph % (Auto) 32.9 (16.0-40.0) % [place]unders % (Auto) 14.5 (0.0-15.0) % Eos % (Auto) 3.7 (0.0-7.0) % Baso % (Auto) 0.4 (0.0-1.5) % Neut # (Auto) 2.5 (1.4-5.7) K/uL Lymph # (Auto) 1.7 (0.6-2.4) K/uL Saunders # (Auto) 0.8 (0.0-0.8) K/uL Eos # (Auto) 0.2 (0.0-0.7) K/uL Baso # (Auto) 0.0 (0.0-0.1) K/uL Sodium 141 (136-145) mmol/L Potassium 4.4 (3.5-5.1) mmol/L Chloride 107 (98-107) mmol/L Carbon Dioxide 25.1 (21.0-32.0) mmol/L BUN 8 (7.0-18.0) mg/dL Creatinine 0.7 (0.6-1.0) mg/dL Est Cr Clr Drug Dosing 97.79 mL/min Estimated GFR (MDRD) > 60.0 ml/min Glucose 102 (74-106) mg/dL Calcium 9.0 (8.5-10.1) mg/dL POLA Results - Last 24 hrs: Microbiology 04/26/19 13:35 Aerobic Blood Culture - Preliminary Blood - Venous - Lab Draw NO GROWTH AFTER 1 DAY Anaerobic Blood Culture - Final 04/26/19 13:45 Aerobic Blood Culture - Preliminary Blood - Venous - Iv Start NO GROWTH AFTER 1 DAY Anaerobic Blood Culture - Preliminary NO GROWTH AFTER 1 DAY Med Orders - Current: Current Medications Acetaminophen (Tylenol) 650 mg PO Q4H PRN PRN Reason: Pain (mild 1-3) Piperacillin Sod/Tazobactam (Sod 3.375 gm/ Sodium Chloride) 100 mls @ 200 mls/ hr IV Q6H [facility] Last Admin: 04/28/19 05:43 Dose: 200 mls/hr Ibuprofen (Motrin) 400 mg PO Q6H PRN PRN Reason: Pain (mild 1-3) Ondansetron HCl (Zofran) 4 mg IVPUSH Q4H PRN PRN Reason: Nausea Oxycodone HCl (Oxycodone) 5 mg PO Q4H PRN PRN Reason: Pain (moderate 4-6) Last Admin: 04/26/19 18:15 Dose: 5 mg Sodium Chloride (Saline Flush) 2.5 ml FLUSH ASDIRECTED PRN PRN Reason: Keep Vein Open Discontinued Medications Sodium Chloride (Normal Saline) 1,000 mls @ 125 mls/hr IV ASDIRECTED [facility] Last Admin: 04/27/19 06:36 Dose: 125 mls/hr Ceftriaxone Sodium/Dextrose 2 (gm/ Premix) 50 mls @ 100 mls/hr IV Q24H [facility] Last Admin: 04/26/19 14:49 Dose: Not Given Piperacillin Sod/Tazobactam (Sod 3.375 gm/ Sodium Chloride) 100 mls @ 200 mls/ hr IV Q6H [facility] Last Admin: 04/26/19 19:54 Dose: Not Given
[2019-04-28 13:24] VITALS: BP 117/77; PULSE 86
== END 2019-04-28 13:23 | disposition home or self-care (01) | DRG 690 ==
LOC: MW.MS 12:39
PROVIDERS: ADMIT Internal Medicine; ATTEND Internal Medicine
DX: N12 Tubulo-interstitial nephritis, not specified as acute or chronic (principal); R78.81 Bacteremia; D64.9 Anemia, unspecified; B96.20 Unspecified Escherichia coli [E. coli] as the cause of diseases classified elsewhere; Z90.710 Acquired absence of both cervix and uterus; R10.33 Periumbilical pain; R50.9 Fever, unspecified; M54.5 Low back pain; N39.0 Urinary tract infection, site not specified
CPT/HCPCS: 36415; 74176; 74176-26; 80048; 80053; 81001; 83605; 85025; 87040; 87077; 87086; 87088; 87186; 96361; 96365; 99283; 99283-25; A9270-GY; J0696; J2543; J7030; J7040